=== PATIENT | male | born 1980 | race Caucasian/White ===

== ENCOUNTER 2018-11-30 08:54 | Outpatient (CLI) | payer OTHER, SELFPAY ==
--- NOTE | 2018-11-30 08:50 | DI.RAD_ITS ---
SYMPTOM/DIAGNOSIS: RT FOOT AND ANKLE PAIN, H/O CALC FX RIGHT ANKLE: Three views. No acute fracture or dislocation is identified. There does appear to be some deformity of the calcaneus raising the question of an old injury. Soft tissues are unremarkable. The articular surfaces are well maintained. IMPRESSION: No acute abnormality.
== END 2018-11-30 09:14 ==
PROVIDERS: PCP Nurse Practitioner; Visit Provider Student in an Organized Health Care Education/Training Program
DX: M25.571 Pain in right ankle and joints of right foot (principal); M79.671 Pain in right foot
CPT/HCPCS: 73610

== ENCOUNTER 2019-02-17 15:52 | Emergency (ER) | payer OTHER, SELFPAY ==
[2019-02-17 15:58] VITALS: BP 147/91; PULSE 90; RESP 15; TEMP 36.4; O2SAT 97
--- NOTE | 2019-02-17 16:00 | DI.RAD_ITS ---
SYMPTOM/DIAGNOSIS: FELL, ? FX, PAIN PA AND LATERAL CHEST AND RIGHT RIBS: PA and lateral chest and three additional views of the right ribs were obtained. Minimal deformities of sixth through ninth ribs noted, seventh and eighth rib fractures are confirmed on one view. No pneumothorax identified. No pleural effusion is seen. Cardiac size is within normal limits and lungs are clear. CONCLUSION: Right rib fractures as described, no evidence of pneumothorax or pleural effusion.
[2019-02-17] MEDS: Lidocaine 5% Patch 1 PATCH TP (16:32)
--- NOTE | 2019-02-17 16:34 | W.ED.GENAD ---
Discharge Plan Disposition Patient Disposition: HOME Condition: Good Discharge Details Chief Complaint: Chest/Rib Clinical Impression: Right rib fracture Primary Care Provider: Darling Albert ED Provider: Naif James Home Meds and New Rx's Prescriptions: New acetaminophen [Mapap Extra Strength] 500 MG tablet 1,000 mg PO Q6H 5 Days Qty: 60 RF: 0 lidocaine [Lidoderm] 1 PATCH patch 1 patch Topical Q24H Qty: 4 RF: 0 ibuprofen [Motrin IB] 200 MG tablet 600 mg PO Q6H 5 Days Qty: 60 RF: 0 No Action Humulin R Regular U-100 Insuln 100 unit/mL Solution 1 sliding scale dose SUBCUT UD RF: 0 Glucagon Emergency Kit (human) 1 mg Recon Soln 1 mg IM ONCE RF: 0 Levemir U-100 Insulin 100 unit/mL Solution 12 unit SUBCUT QPM RF: 0 Levemir U-100 Insulin 100 unit/mL Solution 25 unit SUBCUT QAM RF: 0 Discharge Instructions Instructions: Rib Fracture (ED) Additional Instructions: Please take the medications for pain as directed. Please use Lidoderm patch as directed. Please use the incentive spirometer as we showed you. If you notice any worsening of your symptoms, or any new symptoms such as cough vomiting, diarrhea, fever, chills, shortness of breath, chest pain, numbness, weakness, or fainting , please return immediately to the emergency department for reevaluation. Please follow up with your primary care provider as soon as possible for reassessment and reevaluation. As always, it was a pleasure participating in your medical care today. Referrals: Darling Albert [Primary Care Provider] - Medical Decision Making This is a pleasant 38-year-old male with a past medical history of diabetes who presents today for evaluation of right rib pain. Patient states that 3 days ago he fell and hit the right side of his ribs on a truss, since then he has been having notable pain with breathing. Physical exam demonstrates a small abrasion over the right mid ribs, notable reproducible tenderness. No evidence of crepitus. Lung sounds clear throughout. Chest x-ray shows no evidence of pneumothorax but does show evidence of questionable rib fracture over ribs 7 and 8. No clinical or radiographic evidence of severe pneumonia requiring antibiotics. We will have the patient start incentive spirometry with respiratory therapy, and have anesthesia performed a right-sided rib block. 5:27 PM The patient states that he has near complete resolution of his pain after the rib block. The patient is doing much better. Incentive spirometry demonstrates an inhalation nail of 2500 cc. With a notable improvement of his pain, no concerning findings otherwise noted on chest x-ray, I do feel that he can be safely discharged home with close follow-up with his primary care provider. I have extensively reviewed the treatment plan and discharge instructions with the patient. I have addressed all patient concerns at this time. The patient was made aware of what symptoms to monitor for that would warrant a return to the emergency department. Discussed the plan with the patient, they demonstrate verbal understanding and agreement with our assessment and plan at this time. COMPARISON: CR CHEST 2 VIEWS PA,LAT 12/15/2017 8:32 PM FINDINGS: Lungs: Unremarkable. No consolidation. Pleural space: Unremarkable. No pleural effusion. No pneumothorax. Heart/Mediastinum: Unremarkable. No cardiomegaly. Bones/joints: Lucency in the right lateral eighth or ninth rib may represent nondisplaced fracture. IMPRESSION: Lucency in the right lateral eighth or ninth rib may represent nondisplaced fracture. Thank you for allowing us to participate in the care of your patient. HPI General Date/Time Provider Initiated Documentation: 02/17/19 15:54. HPI Narrative: 38-year-old male with past medical history of diabetes, who presents today for right-sided rib pain. The patient states that 3 days ago he slipped and fell and landed with all of his weight onto a truss on his right ribs. Since then the patient has been trying to control his pain with Tylenol, and Motrin but has had no significant success. Pain is made worse with breathing, improved by nothing. The pain is localized to the right side of his chest where he fell. He denies any associated numbness tingling or weakness, hemoptysis. He denies any significant cough. He has been splinting. He denies any fever or chills. No other modifying factors. No other complaints at this time. Related Data Home Medications Medication Instructions Recorded Confirmed acetaminophen [Mapap Extra 1,000 mg PO Q6H 5 Days #60 tab 02/17/19 Strength] glucagon (human recombinant) 1 mg IM ONCE 02/17/19 02/17/19 [Glucagon Emergency Kit (human)] ibuprofen [Motrin Ib] 600 mg PO Q6H 5 Days #60 tab 02/17/19 insulin detemir U-100 [Levemir 12 unit SUBCUT QPM 02/17/19 02/17/19 U-100 Insulin] insulin detemir U-100 [Levemir 25 unit SUBCUT QAM 02/17/19 02/17/19 U-100 Insulin] insulin regular human [Humulin R 1 sliding scale dose SUBCUT UD 02/17/19 02/17/19 Regular U-100 Insuln] lidocaine [Lidoderm] 1 patch TOPICAL Q24H #4 patch 02/17/19 Previous Rx's Medication Instructions Recorded acetaminophen [Mapap Extra 1,000 mg PO Q6H 5 Days #60 tab 02/17/19 Strength] ibuprofen [Motrin Ib] 600 mg PO Q6H 5 Days #60 tab 02/17/19 lidocaine [Lidoderm] 1 patch TOPICAL Q24H #4 patch 02/17/19 Allergies Allergy/AdvReac Type Severity Reaction Status Date / Time doxycycline AdvReac severe Unverified 02/17/19 16:12 vomiting/diarrhea General Stated Complaint: Chest/Rib MICHAEL: 3 Review of Systems Review of Systems All systems reviewed & are unremarkable except as noted in HPI and below PFSH Medical History Type I diabetes mellitus (Chronic) Social History Smoking/Tobacco Use Status: Former Tobacco Use Quit Date: 11/22/17 Alcohol Intake: never Drug use: Never Do you feel safe at home: Yes Do you feel safe in your relationship?: Yes Exam Narrative Exam Narrative: 1.Const: Well-nourished, Well-developed, appearing stated age 2.Eyes: PERRL, no conjunctival injection, and symmetrical lids. 3.ENT: Atraumatic external nose and ears. Moist MM. Neck: Symmetric, trachea midline, No thyromegaly. 4.CVS: +S1/S2, No murmurs or gallops. Peripheral pulses 2+ and equal in all extremities. Brisk capillary refill in all extremities. 5.RESP: Unlabored respiratory effort. Clear to auscultation bilaterally. No wheezes rales or rhonchi. Notable reproducible tenderness over the right posterior lateral ribs over ribs 789. No crepitus. Airway clear, no obstructions. No abrasions or ecchymosis. Chest movement symmetric with respirations.Trachea midline. No step offs. No paradoxical movements. No Sucking chest wounds. No clinical evidence of significant chest trauma. 6.GI: Soft, Nontender/Nondistended, No hepatosplenomegaly. No guarding or rebound. 7.MSK: Normocephalic, Extremities w/o deformity or ttp No cyanosis or clubbing, Normal movement of all extremities 8.Skin: Warm, Dry. No rashes or lesions. 9.Neuro: center machine set up operator II-XII grossly intact. Sensation grossly intact, no focal neurologic deficits. 10.Psych: (AAO) x3. Appropriate mood and affect Course Vital Signs Temperature 36.4 C L 02/17/19 15:58 Pulse 90 02/17/19 15:58 Respiratory Rate 15 02/17/19 15:58 Blood Pressure 147/91 H 02/17/19 15:58 Pulse Oximetry 97 02/17/19 15:58 Temperature 36.4 C L 02/17/19 15:58 Temperature Source Temporal Artery Scan 02/17/19 15:58 Pulse 90 02/17/19 15:58 Respiratory Rate 15 02/17/19 15:58 Respiratory Effort Non-Labored 02/17/19 16:03 Respiratory Depth Normal 02/17/19 16:03 Respiratory Pattern Normal 02/17/19 16:03 Blood Pressure 147/91 H 02/17/19 15:58 Blood Pressure Position Sitting 02/17/19 15:58 Pulse Oximetry 97 02/17/19 15:58 Oxygen Delivery Method Room Air 02/17/19 15:58 Oxygen Flow Rate 0 02/17/19 15:58 Pain Level 8 02/17/19 16:03
[2019-02-17] MEDS: Bupivacaine LIPOSOME/PF 133 MG/10 ML VIAL IJ (16:38)
[2019-02-17] MEDS: Bupivacaine 0.5% Pres-Free 30 ML VIAL (16:38)
--- NOTE | 2019-02-17 17:35 | DI.VRAD_ITS ---
EXAM: XR Right Ribs, 2 Views EXAM DATE/TIME: 02/17/2019 4:01 PM CLINICAL HISTORY: 38 years old, male; Injury or trauma; Fall; Initial encounter; Sprain or strain; Rib area TECHNIQUE: Imaging protocol: XR Right ribs, 2 views. COMPARISON: CR CHEST 2 VIEWS PA,LAT 12/15/2017 8:32 PM FINDINGS: Bones/joints: Lucency in the right lateral eighth or ninth rib may represent nondisplaced fracture. Soft tissues: Normal. IMPRESSION: Lucency in the right lateral eighth or ninth rib may represent nondisplaced fracture. EXAM: XR Chest, 2 Views EXAM DATE/TIME: 02/17/2019 4:01 PM CLINICAL HISTORY: 38 years old, male; Injury or trauma; Fall; Initial encounter; Sprain or strain; Rib area TECHNIQUE: Imaging protocol: XR of the chest, 2 views. COMPARISON: CR CHEST 2 VIEWS PA,LAT 12/15/2017 8:32 PM FINDINGS: Lungs: Unremarkable. No consolidation. Pleural space: Unremarkable. No pleural effusion. No pneumothorax. Heart/Mediastinum: Unremarkable. No cardiomegaly. Bones/joints: Lucency in the right lateral eighth or ninth rib may represent nondisplaced fracture. IMPRESSION: Lucency in the right lateral eighth or ninth rib may represent nondisplaced fracture. Dictated and Authenticated by: Vannesa Quintana MD. Ordering:BURTON Disla MD
[2019-02-17 17:40] VITALS: BP 136/88; PULSE 86; RESP 16; O2SAT 97
== END 2019-02-17 17:40 | disposition home or self-care (01) ==
PROVIDERS: Emergency Provider Student in an Organized Health Care Education/Training Program; PCP Family Medicine
DX: S22.31XA Fracture of one rib, right side, initial encounter for closed fracture (principal); W00.0XXA Fall on same level due to ice and snow, initial encounter; E10.9 Type 1 diabetes mellitus without complications
CPT/HCPCS: 64450; 76942; 99283; 71046; 71100; 99282

== ENCOUNTER 2019-06-11 14:17 | Emergency (ER) | payer SELFPAY ==
[2019-06-11 14:20] VITALS: BP 151/90; PULSE 88; RESP 18; TEMP 36.9; O2SAT 96
--- NOTE | 2019-06-11 14:48 | ED.GENADUL_ITS ---
Discharge Plan Disposition Patient Disposition: HOME Condition: Stable Discharge Details Chief Complaint: Cellulitis Clinical Impression: Cellulitis, Erythema migrans (Lyme disease) Primary Care Provider: Darling Albert ED Provider: Je Randolph Home Meds and New Rx's Prescriptions: New ondansetron 4 mg tablet,disintegrating 4 mg PO BID Qty: 42 RF: 0 doxycycline hyclate 100 mg capsule 100 mg PO BID Qty: 42 RF: 0 No Action Humulin R Regular U-100 Insuln 100 unit/mL Solution 1 sliding scale dose SUBCUT UD RF: 0 Glucagon Emergency Kit (human) 1 mg Recon Soln 1 mg IM ONCE RF: 0 Levemir U-100 Insulin 100 unit/mL Solution 12 unit SUBCUT QPM RF: 0 Levemir U-100 Insulin 100 unit/mL Solution 25 unit SUBCUT QAM RF: 0 Discharge Instructions Instructions: Acute Rash (ED) Additional Instructions: The lesion on your leg is concerning for a soft tissue infection called cellulitis versus infection caused by a tickborne disease: Lyme disease with a rash that called erythema migrans. Early in the disease process is not effective to run tests but later your primary care doctor may consider doing some lab testing in the meantime the antibiotic doxycycline twice daily for 21 days will treat that disease and the other possibility which is just a simple bacterial infection. Please follow-up with your primary care doctor next few days and return to the emergency department immediately for fever chills or if the redness spreads beyond the trace line on your leg from today. Discharge Data Discharge Date/Time-TO BE ENTERED AT DEPARTURE: 06/11/19 15:53 Medical Decision Making 39-year-old male past medical history of diabetes with a left lateral thigh lesion concerning for cellulitis versus erythema migrans no tick bite but minimal warmth minimal tenderness more suggestive of Lyme disease than simple cellulitis. Will treat with 21 days of doxycycline and have patient follow-up with primary care this week. Patient episode of nausea and vomiting after doxycycline once in the past treated here with p.o. challenge Zofran and doxy tolerated medicine without incident will prescribe Zofran and doxycycline together for the patient's 21-day course patient counseled to return to the emergency department for fever chills joint pain spreading rash which was traced today or other concern HPI 39-year-old male past medical history of diabetes on insulin presents with 3 days of a rash and redness on his left anterior thigh wound is grown in size is red round with some central clearing. Is mildly tender to touch base of the also with some mild chills without joint swelling or myalgias. No known tick bite no history of recent trauma. No shortness of breath chest pain loss of consciousness nausea vomiting diarrhea. General Date/Time Provider Initiated Documentation: 06/11/19 14:38 . Related Data Home Medications Medication Instructions Recorded Confirmed glucagon (human recombinant) 1 mg IM ONCE 02/17/19 06/11/19 [Glucagon Emergency Kit (human)] insulin detemir U-100 [Levemir 12 unit SUBCUT QPM 02/17/19 06/11/19 U-100 Insulin] insulin detemir U-100 [Levemir 25 unit SUBCUT QAM 02/17/19 06/11/19 U-100 Insulin] insulin regular human [Humulin R 1 sliding scale dose SUBCUT UD 02/17/19 06/11/19 Regular U-100 Insuln] doxycycline hyclate 100 mg PO BID #42 cap 06/11/19 ondansetron 4 mg PO BID #42 tab 06/11/19 Previous Rx's Medication Instructions Recorded doxycycline hyclate 100 mg PO BID #42 cap 06/11/19 ondansetron 4 mg PO BID #42 tab 06/11/19 Allergies Allergy/AdvReac Type Severity Reaction Status Date / Time doxycycline AdvReac severe Unverified 06/11/19 14:25 vomiting/diarrhea General Stated Complaint: Cellulitis MICHAEL: 4 Review of Systems Review of Systems All systems reviewed & are unremarkable except as noted in HPI and below PFSH Medical History (Updated 12/02/18 @ 14:00 by Brian South MD) Type I diabetes mellitus (Chronic) Social History Smoking/Tobacco Use Status: Former Tobacco Use Quit Date: 11/22/17 Alcohol Intake: current Alcohol Intake frequency: holidays/special occasions only Drug use: Daily Substance use type: marijuana Do you feel safe at home: Yes Do you feel safe in your relationship?: Yes Exam Narrative Exam Narrative: Left lateral thigh with 15 cm oval area of erythema mild warmth no fluctuance no induration slight central clearing. Const General: cooperative, healthy appearing, no acute distress, well developed and well groomed Nutritional Appearance: well nourished Orientation: alert, awake and oriented x3 HENMT Head: normal to inspection, normocephalic and atraumatic Ears: hearing grossly normal bilaterally and external ears normal General nose exam: external nose normal Face and sinus: normal facial exam Mouth: oral mucosae normal and lip normal Chest Chest: normal inspection of the chest Resp Effort & Inspection: normal respiratory effort and able to speak in complete sentences Cardio Jugular venous pressure: no JVD Rate: regular rate GI Inspection: normal to inspection Palpation: soft, firm and guarding Percussion: normal to percussion Skin General skin exam: no rashes or lesions noted Lesions: no lesions Rashes: no rashes Trauma: no lacerations or abrasions Neuro General: alert, awake and oriented x3 Cognition: normal cognition Motor: muscle tone normal throughout Sensory Exam: no sensory deficits noted Extrem General: normal to inspection Right upper extremity: normal to inspection Left upper extremity: normal to inspection Right lower extremity: normal to inspection Left lower extremity: normal to inspection Psych Appearance: grossly normal Mental Status: mental status grossly normal Speech and Movement: speech and movement normal Course Vital Signs Temperature 36.9 C 06/11/19 14:20 Pulse 88 06/11/19 14:20 Respiratory Rate 18 06/11/19 14:20 Blood Pressure 151/90 H 06/11/19 14:20 Pulse Oximetry 96 06/11/19 14:20 Temperature 36.9 C 06/11/19 14:20 Temperature Source Tympanic 06/11/19 14:20 Pulse 88 06/11/19 14:20 Respiratory Rate 18 06/11/19 14:20 Respiratory Effort Non-Labored 06/11/19 14:23 Blood Pressure 151/90 H 06/11/19 14:20 Pulse Oximetry 96 06/11/19 14:20 Pain Level 4 06/11/19 14:20
[2019-06-11] MEDS: Ondansetron O.D.T. 4 MG TABEF PO (14:54)
[2019-06-11] MEDS: Doxycycline Hyclate 100 MG CAP PO (14:54)
== END 2019-06-11 15:53 | disposition home or self-care (01) ==
PROVIDERS: Emergency Provider Emergency Medicine; PCP Family Medicine
DX: L03.116 Cellulitis of left lower limb (principal); A69.20 Lyme disease, unspecified; E10.9 Type 1 diabetes mellitus without complications
CPT/HCPCS: 99283

== ENCOUNTER 2021-03-12 16:42 | Outpatient (REF) | payer OTHER, SELFPAY ==
[2021-03-12 14:14] LABS: ALT 21 U/L (16-63); AST 16 U/L (15-37); Albumin 3.3 g/dL (3.4-5.0); Alkaline Phosphatase 124 U/L (46-116); Anion Gap 7.5 mmol/L (3-11); BUN 10 mg/dL (7-18); Bilirubin, Total 0.5 mg/dL (0.2-1.0); CO2 28.5 mmol/L (21.0-32.0); Calcium 8.3 mg/dL (8.5-10.1); Calculated LDL 144 mg/dL (<100); Chloride 104 mmol/L (98-107); Cholesterol 201 mg/dL (<200); Glucose 255 mg/dL (74-106); HDL Cholesterol 46 mg/dL (40-60); Potassium 4.1 mmol/L (3.5-5.1); Sodium 140 mmol/L (136-145); Total Protein 6.7 g/dL (6.4-8.2); Triglyceride 56 mg/dL (<150)
== END 2021-03-12 16:43 | disposition home or self-care (01) ==
LOC: NCHCN 16:42
PROVIDERS: PCP Family Medicine; Visit Provider Family Medicine
DX: E10.9 Type 1 diabetes mellitus without complications (principal)
CPT/HCPCS: 80053; 80061

== ENCOUNTER 2021-04-22 08:32 | Emergency (ER) | payer OTHER, SELFPAY ==
[2021-04-22] VITALS (40 sets, daily range): BP systolic 115–132; BP diastolic 68–89; PULSE 66–93; RESP 9–23; TEMP 36.4; O2SAT 91–99
--- NOTE | 2021-04-22 08:45 | DI.RAD_ITS ---
Exam(s) XR FOOT RT COMPLETE EXAM: XR FOOT RT COMPLETE CLINICAL HISTORY: pain, dropped wood on foot, ttp 5th MT TECHNIQUE: COMPARISON: No exams were available for comparison FINDINGS: Three views were obtained. There is hindfoot arthrodesis with [address] which appear int act. There is a nondisplaced fracture of the head of the 5th metatarsal, this reportedly corresponds the s ite of the patient's injury. No additional fracture seen. IMPRESSION: RADIATION DOSE DELIVERED: Total DLP
--- NOTE | 2021-04-22 08:58 | ED.GENADUL_ITS ---
Discharge Plan Disposition Patient Disposition: HOME Condition: Stable Discharge Details Clinical Impression: Fracture of fifth metatarsal bone of right foot, Hypoglycemia Primary Care Provider: Darling Albert ED Provider: Attila Robertson Home Meds and New Rx's Prescriptions: Continued famotidine 40 mg tablet 40 mg PO DAILY RF: 0 insulin lispro [Humalog KwikPen Insulin] 100 unit/mL Insulin Pen See Rx Instructions .ROUTE .COMPLEX RF: 0 Tresiba FlexTouch U-100 100 unit/mL (3 mL) insulin pen 40 unit SUBCUT QAM RF: 0 (DME) FreeStyle Giancarlo 14 Day Sensor Kit MISCELLANEOUS RF: 0 Changed Glucagon Emergency Kit (human) 1 mg Recon Soln 1 mg IM ONCE PRN (Reason: hypoglycemia) Qty: 1 RF: 1 ondansetron 4 mg tablet,disintegrating 4 mg PO BID PRNQty: 10 RF: 0 Discharge Instructions Instructions: Foot Fracture in Adults (ED), Hypoglycemia in a Person with Diabetes (ED) Additional Instructions: Please use orthopedic shoe and crutches. No weightbearing of right foot until cleared to do so. Please follow-up with orthopedics. It is recommended that you modify your insulin dosing and take as follows: --Tresiba flex touch long-acting insulin: Take 27 units daily in AM --Humalog short acting insulin: Take 6 units 3 times a day with meals. Please monitor your blood glucose frequently and keep a log of your values over the next 3 weeks. Please contact your primary care physician to arrange follow-up. Call today. Return to the ER immediately for any worsening or new concerning symptoms. Referrals: Darling Albert [Primary Care Provider] - Medical Decision Making 9:00??40-year-old male with insulin-dependent diabetes on long-acting and short acting sliding scale, recently increasing long-acting dosing, here after hypoglycemic episode this morning that improved with oral glucose. Patient had nausea and vomiting for EMS and was given Zofran IV. Plan to give IV fluid here in we will check chemistry to assess for electrolyte abnormalities. Patient also with recent right foot injury. Tender right fifth metatarsal. Consider fracture. Plan to obtain x-ray. -- labs reviewed and nondiagnostic. Potassium 3.4. Will give kdur 20meq. --Patient was seen by dietitian and diabetic special who reviewed insulin regiment with patient. He is recommending changing long-acting 27 units daily and short acting 6 units 3 times daily w/ meals. 1241 -- Patient reassessed and is remained stable. Blood sugar on fingerstick 96. Plan to discharge with close outpatient follow-up with PCP. We have contacted PCP office and noted need to arrange follow-up. --Upon ambulating, patient had another episode of nausea and vomiting. He was given additional antiemetic Reglan and started on D5 normal saline and monitored for another hour. Patient was reassessed and noted be feeling much better. Disposition decision was made weighing the risks and benefits of hospitalization versus outpatient treatment, the risk for further decompensation, and the patient's wishes. The patient was stable and requested discharge. Prior to discharge, my usual and customary return precautions were reviewed with the patient - this included follow-up instructions and reason to return to the emergency department if condition worsens, does not improve as expected, or other new concerns arise. HPI General Mode of arrival: ambulatory . Date/Time Provider Initiated Documentation: 04/22/21 08:44 . Limitations to Documentation: no limitations . Information obtained by: patient . HPI Narrative: 40-year-old male with type 1 diabetes presents with chief complaint of hypoglycemia. Patient notes that this morning his blood sugar was low. He became unresponsive. Family provided him oral sugar and he became more responsive slowly. History is limited as patient was altered. EMS provided Zofran for nausea and vomiting. Patient notes she had an episode of vomiting last night. He states he has been adjusting his long-acting insulin dosing over the past few weeks as he was having elevated blood sugar and notes that he thinks his sugars now been running too low. Patient takes a long-acting insulin in the morning and then takes NovoLog sliding scale. He is unsure if he took his NovoLog this morning. Related Data Home Medications Medication Instructions Recorded Confirmed FreeStyle Giancarlo 14 Day Sensor 04/22/21 04/22/21 Glucagon Emergency Kit (human) 1 mg IM ONCE PRN #1 ea 04/22/21 Tresiba FlexTouch U-100 40 unit SUBCUT QAM 04/22/21 04/22/21 famotidine 40 mg PO DAILY 04/22/21 04/22/21 insulin lispro [Humalog KwikPen See Rx Instructions .ROUTE .COMPLEX 04/22/21 04/22/21 Insulin] ondansetron 4 mg PO BID PRN #10 tab 04/22/21 Previous Rx's Medication Instructions Recorded Glucagon Emergency Kit (human) 1 mg IM ONCE PRN #1 ea 04/22/21 ondansetron 4 mg PO BID PRN #10 tab 04/22/21 Allergies Allergy/AdvReac Type Severity Reaction Status Date / Time doxycycline AdvReac severe Unverified 04/22/21 08:37 vomiting/diarrhea General Stated Complaint: Diabetes MICHAEL: 3 Review of Systems All systems reviewed & are unremarkable except as noted in HPI and below Constitutional Constitutional: Denies fever(s) Gastrointestinal Gastrointestinal: Denies abdominal pain, Reports nausea and Reports vomiting Musculoskeletal Musculoskeletal: Denies deformity and Reports other (Right foot pain-patient notes he dropped a piece of wood on it 2 days ago) [facility] Medical History (Updated 04/22/21 @ 10:51 by Attila Robertson MD) Type I diabetes mellitus Social History Smoking/Tobacco Use Status: Former Tobacco Use Quit Date: 11/22/17 Smoking risk assessment performed?: Yes Alcohol Intake: current Alcohol Intake frequency: holidays/special occasions only Drug use: Daily Substance use type: marijuana Do you feel safe at home: Yes Do you feel safe in your relationship?: Yes Exam Const General: cooperative and no acute distress HENMT Mouth: moist mucous membranes Eyes Conjunctivae: normal conjunctivae Sclera: normal sclerae Neck Neck: trachea midline Resp Auscultation: clear to auscultation bilaterally, no rales, no rhonchi and no wheezes Cardio Rate: regular rate and not tachycardic Rhythm: regular rhythm GI Palpation: soft, not firm, no guarding, no masses, not rigid and nontender Skin General skin exam: no rashes or lesions noted Neuro General: patient alert, patient awake, patient oriented x3 and tone normal Extrem General: no edema Psych Appearance: grossly normal Mental Status: mental status grossly normal Speech and Movement: speech and movement normal Course Vital Signs Vital signs: Vital Signs Temperature 36.4 C L 04/22/21 08:32 Pulse 86 04/22/21 08:32 Respiratory Rate 18 04/22/21 08:32 Blood Pressure 131/89 04/22/21 08:32 Pulse Oximetry 96 04/22/21 08:32 Temperature 36.4 C L 04/22/21 08:32 Temperature Source Skin 04/22/21 08:32 Pulse 86 04/22/21 08:32 Respiratory Rate 18 04/22/21 08:32 Respiratory Effort Non-Labored 04/22/21 08:46 Blood Pressure 131/89 04/22/21 08:32 Blood Pressure Position Sitting 04/22/21 08:32 Pulse Oximetry 96 04/22/21 08:32 Oxygen Delivery Method Room Air 04/22/21 08:32 Oxygen Flow Rate 0 04/22/21 08:32 Pain Level 0 04/22/21 08:32
[2021-04-22 09:06] LABS: Abs Immature Grans 0.07 10^3/uL (0.0-0.06); Absolute Basophil Count 0.04 10^3/uL (0.0-0.2); Absolute Eosinophil Count 0.03 10^3/uL (0.0-0.7); Absolute Lymphocyte Count 0.87 10^3/uL (1.2-3.4); Absolute Monocyte Count 0.64 10^3/uL (0.1-0.8); Absolute Neutrophil Count 12.23 10^3/uL (1.2-6.7); Basophils % 0.3; Eosinophils % 0.2; HGB 15.3 g/dL (13.5-17.5); Immature Grans % 0.5; Lymphocytes % 6.3; MCH 28.2 pg (27.0-33.0); MCHC 33.3 % (32.0-36.0); MCV 84.9 fL (80-95); MPV 10.3 fL (8.0-11.0); Monocytes % 4.6; Neutrophils % 88.1; Nucleated RBC 0 %; Platelet Count 229 10^3/uL (130-400); RBC 5.42 10^6/uL (4.36-5.78); RDW 12.9 % (11.8-14.1); RDW-SD 39.7 fL; WBC 13.88 10^3/uL (4.4-10.8)
[2021-04-22 09:18] LABS: ALT 21 U/L (16-63); AST 18 U/L (15-37); Albumin 3.6 g/dL (3.4-5.0); Alkaline Phosphatase 125 U/L (46-116); Anion Gap 8.1 mmol/L (3-11); BUN 9 mg/dL (7-18); Bilirubin, Total 0.6 mg/dL (0.2-1.0); CO2 30.9 mmol/L (21.0-32.0); Calcium 8.5 mg/dL (8.5-10.1); Chloride 101 mmol/L (98-107); Glucose 133 mg/dL (74-106); Lipase 37 U/L (73-393); Potassium 3.4 mmol/L (3.5-5.1); Sodium 140 mmol/L (136-145)
--- NOTE | 2021-04-22 10:16 | NUR.NOTE ---
Nursing Note: Contacted [facility] and spoke with Logistics Planning Manager Yordan. Notified that this patient needs outpatient referral for Public Relations Coordinator so he can continue to utilize these services outpatient. Yordan took patients info and will get referral placed for this patient
[2021-04-22] MEDS: Ondansetron 4 MG/2 ML VIAL IVP (10:24)
[2021-04-22] MEDS: Lactated Ringers 500 ML IV (10:26)
--- NOTE | 2021-04-22 10:27 | W.INDIABCONS ---
Date of service: 04/22/21 Time of Service: 10:00 Diabetes Inpatient Consult DESCRIPTION/ASSESSMENT: Gerard is a 40 y/o M w/ DM1 admitted to Ed with hypoglycemia nausea and vomiting. Current DM meds are 40 u Tresiba am and sliding scale Novolog for meals. reports he did not eat all day yesterday and took no insulin throughout the day because he had high BG. He then took 40 units tresiba at night and then ate and vomited immediately. He had s/s hypoglycemia w/ BG reading in the 30's using finger stick. Noted: he has CGM but stated he had no sensor on yesterday. Family gave him Iced tea w/ sugar. This RD interviewed his b/c patient was lethargic and continued to vomit. INTERVENTION: Calculated the following recommendation for MD review and approval: TDD insulin at 45 units per day based on his current weight. Long acting insulin should be ~ 60% of TDD (27 units) and mealtime bolus insulin would be ~ 6 units per meal. He could still use his sliding scale for meals and correcting if he prefers it. Noted: patient was lethargic and nauseous at this encounter. Explained to that he must eat food when he is taking insulin. He requires Rx for glucagon and Free style Giancarlo 2 sensors. He needs to have a sick day plan in place. Requires CGM sensor in place to alert him to trends of hypo / hyperglycemia and action plans for each scenario. Recommended referra by his provider for further support as outpatient by [facility] DM educator and provided contact information. Will refer this patient to Shoshana De to help review insulin regimen and re-calculate BG goals and bolus correction factors. PLAN: Will f/u with Gerard and Dr Robertson before MO today and re-iterate importance of consistent food intake, review of insulin regimen, and follow up outpatient appointment with family life educator for support and re-education.. CGM review and printed AGP reports would be beneficial for this patient to help avoid hypoglycemic episodes. Time Spent in Nutritional Counseling and Treatment: 15 minutes face to face
[2021-04-22] MEDS: DEXTROSE 5%-0.45% SALINE 1,000 ML 150 ML IV (12:57)
[2021-04-22] MEDS: Metoclopramide 10 MG/2 ML VIAL IVP (12:57)
[2021-04-22] MEDS: Potassium Chloride 20 MEQ TABCR PO (13:40)
== END 2021-04-22 13:54 | disposition home or self-care (01) ==
PROVIDERS: Emergency Provider Student in an Organized Health Care Education/Training Program; PCP Family Medicine
DX: E10.649 Type 1 diabetes mellitus with hypoglycemia without coma (principal); S92.351A Displaced fracture of fifth metatarsal bone, right foot, initial encounter for closed fracture; W20.8XXA Other cause of strike by thrown, projected or falling object, initial encounter; E87.6 Hypokalemia
CPT/HCPCS: 36416; 80053; 82962; 83690; 96361; 96365; 96375; 99284; 73630; 81003; 85025; J2405; J2765

== ENCOUNTER 2021-11-22 20:39 | Outpatient (REF) | payer SELFPAY | END 2021-11-22 20:40 | disposition home or self-care (01) | LOC: LBO 20:39 | PROVIDERS: PCP Family Medicine ==

== ENCOUNTER 2023-02-23 11:44 | Outpatient (CLI) | payer OTHER, SELFPAY ==
--- NOTE | 2023-02-23 11:15 | DI.RAD_ITS ---
Exam(s) XR SHOULDER RT COMPLETE 2+V EXAM: XR SHOULDER RT COMPLETE 2+V CLINICAL HISTORY: shoulder pain. TECHNIQUE: 2D digital imaging was performed. Two views. COMPARISON: CR XR SHOULDER LT COMPLETE 2+V from 02/23/2023 FINDINGS: BONES: No acute fracture is present. No bony destructive lesion is seen. JOINTS: No dislocation present. Glenohumeral joint space is maintained. Minimal spurring at the gle noid. AC joint not well profiled but no significant spurring visible SOFT TISSUE: Normal. IMPRESSION: Minimal degenerative changes. DATA REPOSITORY: RADIATION DOSE DELIVERED:
--- NOTE | 2023-02-23 11:15 | DI.RAD_ITS ---
Exam(s) XR SHOULDER LT COMPLETE 2+V EXAM: XR SHOULDER LT COMPLETE 2+V CLINICAL HISTORY: shoulder pain. TECHNIQUE: 2D digital imaging was performed. Three views. COMPARISON: CR XR ribs RT w PA lat chest from 02/17/2019 FINDINGS: BONES: No acute fracture is present. No bony destructive lesion is seen. JOINTS: No dislocation present.Mild spurring at the glenoid. AC joint unremarkable. SOFT TISSUE: Normal. IMPRESSION: Minimal degenerative changes. DATA REPOSITORY: RADIATION DOSE DELIVERED:
== END 2023-02-23 11:45 | disposition home or self-care (01) ==
PROVIDERS: PCP Family Medicine; Referring Provider Family Medicine; Visit Provider Student in an Organized Health Care Education/Training Program
DX: M25.511 Pain in right shoulder (principal); M25.512 Pain in left shoulder; M25.811 Other specified joint disorders, right shoulder; M25.812 Other specified joint disorders, left shoulder
CPT/HCPCS: 73030

== ENCOUNTER 2023-07-25 16:58 | Inpatient (IN) | payer SELFPAY ==
[2023-07-25] VITALS (77 sets, daily range): BP systolic 94–141; BP diastolic 47–98; PULSE 105–140; RESP 12–41; TEMP 36.7–37; O2SAT 93–100
--- NOTE | 2023-07-25 17:29 | ED.GENADUL_ITS ---
Discharge Plan Disposition Patient Disposition: Admit to [facility] Discharge Details Clinical Impression: DKA (diabetic ketoacidosis), Vomiting, Acute dehydration Admit Date/Time: 07/25/23 22:29 Admit Provider: Marcello Dia Attending Provider: Marcello Dia Primary Care Provider: Darling Albert ED Provider: Sher Martinez Discharge Data Discharge Date/Time-TO BE ENTERED AT DEPARTURE: 07/25/23 23:34 Medical Decision Making <Sher Martinez NP - Last Filed: 07/26/23 16:08> Patient presenting to the emergency department for chief complaint of high sugars with some nausea and vomiting. Patient reports that he was out for his anniversary last night and did have some cocktails and drinks along with a bigger meal than normal. Before going to bed last night he did have an episode of vomiting but then throughout the day today he has had continued further episodes of vomiting and elevated sugars. He states his blood sugar typically runs around 150s but today has been in the 300s. He reports abdominal pain secondary to vomiting only otherwise denies other symptoms. Physical exam shows diffuse nonfocal abdominal pain, tachycardia, otherwise nondiagnostic exam. I suspect elevated blood sugar secondary to alcohol intake with potential for electrolyte abnormality and dehydration. Pending results we will give patient 2 L of normal saline Zofran and acetaminophen Reviewed patient's labs and patient does have some signs of leukocytosis which I feel is secondary to vomiting, VBG does not show any acidosis which is reassuring, CMP shows low sodium chloride and carbon dioxide with elevated anion gap, BUN and creatinine. Glucose is 340 and bilirubin slightly elevated at 1.4 with otherwise normal LFTs. Magnesium is 1.6 which once patient can tolerate p.o. intake will replete orally. Urinalysis does show high specific gravity ketones and 500 glucose otherwise nondiagnostic. All other labs within normal value. After 2 L of fluid patient remained tachycardic so we will start third liter of NS and will repeat BMP. Fingerstick was performed and is now 217 which is reassuring. BMP showed glucose of 250 and some improvement of anion gap now at 18.4 down from 24. Other labs show slight improvement but not significant. Patient did have resumption of nausea and vomiting so Compazine was ordered. Discussed admission with patient who is agreeable. Did also order patient for units of subcu insulin given that he states typically he will take around that same amount. Given that he is having significant amount of nausea and vomiting that is near irretractable we will plan on performing CT imaging to ensure no other intra-abdominal processes going on. Reviewed CT imaging and radiologist interpretation that shows some signs of inflammatory thickening of the cecum to suggest colitis but otherwise no emergent findings noted. Patient remains tachycardic in spite of now starting the fourth liter of fluids, I am concerned about significant dehydration, and alcoholic ketosis along with persistent nausea and vomiting. We will contact hospitalist for admission which patient is agreeable to stay. Discussed case with hospitalist who agreed to admit patient. Do feel that this is both DKA and metabolic alkalosis most likely secondary to excessive vomiting. Per hospitalist request insulin will protocol, maintenance fluids and IV magnesium given that patient cannot tolerate p.o. intake. Imaging Data Radiologic Study: Imaging: CT Scan Radiologist's impression: Exam(s) PROCEDURE INFORMATION: Exam: CT Chest With Contrast; Diagnostic Exam date and time: 07/25/2023 8:37 PM Age: 43 years old Clinical indication: Nausea and vomiting; Other: Tachy TECHNIQUE: Imaging protocol: Diagnostic computed tomography of the chest with contrast. 3D rendering (Not supervised by radiologist): MIP and/or 3D reconstructed images were created by the technologist. Contrast material: 350; Contrast volume: 100 ml; Contrast route: INTRAVENOUS (IV); COMPARISON: CR XR ribs RT w PA lat chest 02/17/2019 4:23 PM FINDINGS: Lungs: Unremarkable. No consolidation. No masses. Pleural spaces: Unremarkable. No pneumothorax. No pleural effusion. Heart: Unremarkable. No cardiomegaly. No pericardial effusion. Lymph nodes: Unremarkable. No enlarged lymph nodes. Vasculature: Unremarkable. No aortic aneurysm. Bones/joints: Unremarkable. No acute fracture. Soft tissues: Unremarkable. IMPRESSION: No acute findings. PROCEDURE INFORMATION: Exam: CT Abdomen And Pelvis With Contrast Exam date and time: 07/25/2023 8:37 PM Age: 43 years old Clinical indication: Nausea and vomiting; Other: Tachy TECHNIQUE: Imaging protocol: Computed tomography of the abdomen and pelvis with contrast. 3D rendering (Not supervised by radiologist): MIP and/or 3D reconstructed images were created by the technologist. Contrast material: 350; Contrast volume: 100 ml; Contrast route: INTRAVENOUS (IV); COMPARISON: CR XR ribs RT w PA lat chest 02/17/2019 4:23 PM FINDINGS: Liver: Normal. No mass. Gallbladder and bile ducts: Normal. No calcified stones. No ductal dilation. Pancreas: Normal. No ductal dilation. Spleen: Normal. No splenomegaly. Adrenal glands: Normal. No mass. Kidneys and ureters: Normal. No hydronephrosis. Stomach and bowel: Moderate concentric wall thickening of the cecum and surrounding fatty stranding suggesting colitis. No evidence of bowel obstruction. Appendix: No evidence of appendicitis. Intraperitoneal space: Unremarkable. No free air. No significant fluid collection. Vasculature: Unremarkable. No abdominal aortic aneurysm. Lymph nodes: Unremarkable. No enlarged lymph nodes. Urinary bladder: Unremarkable as visualized. Reproductive: Unremarkable as visualized. Bones/joints: Unremarkable. No acute fracture. Soft tissues: Unremarkable. IMPRESSION: Inflammatory appearing concentric wall thickening in the cecum suggesting colitis. Lab Data Lab results reviewed: Yes I reviewed the patient's lab results. <Attila Robertson MD - Last Filed: 08/11/23 15:13> Date: 07/25/23 Time: 19:45 Note: Patient seen, examined, and discussed with ANU Martinez. I agree with treatment plan as discussed/documented. Patient with significant anion gap acidosis which I suspect is secondary to alcoholic ketoacidosis but consider DKA. Plan for IV fluid resuscitation. Plan to recheck chemistry and reassess patient for disposition. HPI <Sher Martinez NP - Last Filed: 07/26/23 16:08> General Mode of arrival: ambulatory . Date/Time Provider Initiated Documentation: 07/25/23 17:00 . Limitations to Documentation: no limitations . Information obtained by: patient, family and RN notes reviewed . History of Present Illness 43 year old M presents to the emergency department with the chief complaint of Nausea vomiting high sugars, described as moderate and similar to prior episodes, Quality is described as aching, and is localized to the abdomen. Patient started experiencing this day(s) (1) and it has been constant. No relieving factors improve symptom(s), Eating worsens symptoms (Alcohol intake) . Patient notes nausea/vomiting. Patient did receive the following treatments prior to arrival, other (6 units of insulin 30 minutes prior to arrival) Related Data Home Medications Medication Instructions Recorded Confirmed flash glucose sensor (FreeStyle 04/22/21 02/23/23 Giancarlo 14 Day Sensor kit) glucagon (human recombinant) 1 mg 1 mg IM ONCE PRN hypoglycemia #1 ea 04/22/21 07/25/23 solution for injection (Glucagon Emergency Kit) insulin degludec 100 unit/mL (3 40 unit subcut QAM 04/22/21 02/23/23 mL) subcutaneous pen (Tresiba FlexTouch U-100 insulin) insulin lispro 100 unit/mL See Rx Instructions .Route .COMPLEX 04/22/21 07/25/23 subcutaneous pen (Humalog KwikPen (U-100) Insulin) insulin detemir U-100 100 unit/mL 30 unit subcut QHS 01/29/23 07/25/23 (3 mL) subcutaneous pen (Levemir FlexPen) Previous Rx's Medication Instructions Recorded glucagon (human recombinant) 1 mg 1 mg IM ONCE PRN hypoglycemia #1 ea 04/22/21 solution for injection (Glucagon Emergency Kit) Allergies Allergy/AdvReac Type Severity Reaction Status Date / Time doxycycline AdvReac severe Unverified 02/23/23 11:15 vomiting/diarrhea General Stated Complaint: Diabetes MICHAEL: 2 Review of Systems <Sher Martinez NP - Last Filed: 07/26/23 16:08> Constitutional Constitutional: Denies chills, Denies fever(s) and Reports poor appetite Cardiovascular Cardiovascular: Denies chest pain and Denies dyspnea Respiratory Respiratory: Denies cough and Denies dyspnea Gastrointestinal Gastrointestinal: Reports as per HPI, Reports abdominal pain, Denies melena, Denies change in bowel habits, Denies constipation, Denies diarrhea, Reports nausea and Reports vomiting Genitourinary Genitourinary: Reports system reviewed and no additional complaints, except as documented Integumentary/Breasts Skin/Breast: Denies rash [facility] <Sher Martinez NP - Last Filed: 07/26/23 16:08> All Active Problems (Updated 07/27/23 @ 00:07 by CLIFF KELLER) Adhesive capsulitis of both shoulders (Acute) Fracture of fifth metatarsal bone of right foot (Acute) Hypoglycemia (Acute) Right calcaneal fracture malunion (Acute) Arthritis of right subtalar joint (Acute) Type I diabetes mellitus (Chronic) Social History Smoking/Tobacco Use Status: Former Tobacco Use Quit Date: 11/22/17 Smoking risk assessment performed?: Yes Alcohol Intake: current Alcohol Intake frequency: holidays/special occasions only Drug use: Daily Substance use type: marijuana Housing: house Current gender identity: male Do you feel safe at home: Yes Do you feel safe in your relationship?: Yes Exam <Sher Martinez NP - Last Filed: 07/26/23 16:08> Const General: cooperative Orientation: alert, awake and oriented x3 Resp Effort & Inspection: normal respiratory effort and able to speak in complete sentences Auscultation: clear to auscultation bilaterally Cardio Rate: tachycardic Rhythm: regular rhythm Heart Sounds: S1 normal and S2 normal GI Palpation: soft, no hepatosplenomegaly, not firm, no guarding, no masses, no pulsatile masses, not rigid, no splenomegaly and tender (Diffuse nonfocal) Auscultation: normal bowel sounds Back/Spine/Pelvis Back: no CVA tenderness Neuro General: patient alert, patient awake, patient oriented x3, gait normal and moves all extremities Course <ANU Cordon Last Filed: 07/26/23 16:08> Vital Signs Vital signs: Vital Signs Temperature 36.7 C 07/25/23 17:08 Pulse 111 H 07/25/23 17:08 Respiratory Rate 18 07/25/23 17:08 Blood Pressure 122/80 07/25/23 17:08 Pulse Oximetry 98 07/25/23 17:08 Temperature 36.7 C 07/25/23 17:08 Temperature Source Oral 07/25/23 17:08 Pulse 111 H 07/25/23 17:08 Respiratory Rate 18 07/25/23 17:08 Respiratory Effort Normal, Non-Labored 07/25/23 17:14 Blood Pressure 122/80 07/25/23 17:08 Pulse Oximetry 98 07/25/23 17:08 Oxygen Delivery Method Room Air 07/25/23 17:08 Oxygen Flow Rate 0 07/25/23 17:08 Critical Care Time <ANU Cordon Last Filed: 07/26/23 16:08> Critical Care Time Critical Care Time: Yes Total Critical Care Time: 60 Attestation: Due to DKA with significant vomiting with high probability of imminent or life threatening deterioration in the patient?s condition without intervention and treatment. At least 60 minutes was spent in caring for patient. Time spent documenting, reviewing labs and radiographs, monitoring titration/ Vital signs, and speaking with hospitalist for admission. PAWSS <Sher Martinez NP - Last Filed: 07/26/23 16:08> Have you Been Recently Intoxicated or Drunk Within the Last 30 days?: No Have you Ever Experienced Previous Episodes of Alcohol Withdrawal?: No Have you ever Experienced Withdrawal Seizures?: No Have you ever Experienced Delirium Tremens(DT)s?: No Have you ever undergone Alcohol Rehabilitation Treatment (i.e, inpt ot outpatient treatment programs)?: No Have you ever Experienced Blackouts?: No Have you ever Combined Alcohol with other Downers within the last 90 days?: No Have you ever Combined Alcohol with any other Substance of Abuse during the last 90 days?: No Positive Blood Alcohol level on Presentation? [PCS.BAL]: No Evidence of Increased Autonomic Activity (i.e. HR>120, tremor, sweating, agitation, nausea)?: No Result: 0 <Attila Robertson MD - Last Filed: 08/11/23 15:13> Result: 0
[2023-07-25 17:32] LABS: BE (Venous) -10 mmol/L (-2-3); HCO3 (Venous) 15 mmol/L (23-28); O2 Sat (Venous) 92 %; TCO2 (Venous) 13 mmol/L (24-29); pCO2 (Venous) 25 mmHg (41-51); pH (Venous) 7.39 (7.31-7.41); pO2 (Venous) 60 mmHg
[2023-07-25] MEDS: Normal Saline 1,000 ML 1000 ML IV ×4 (17:39→21:28)
[2023-07-25] MEDS: Ondansetron 4 MG/2 ML VIAL IVP ×2 (17:39→17:57)
[2023-07-25 17:44] LABS: Abs Immature Grans 0.06 10^3/uL (0.0-0.06); Absolute Basophil Count 0.03 10^3/uL (0.0-0.2); Absolute Monocyte Count 0.67 10^3/uL (0.1-0.8); Basophils % 0.2; HCT 46.7 % (40.0-50.0); HGB 16.1 g/dL (13.5-17.5); Immature Grans % 0.4; Lymphocytes % 4.3; MCH 29.5 pg (27.0-33.0); MCHC 34.5 % (32.0-36.0); MCV 86 fL (80-95); MPV 10.5 fL (8.0-11.0); Monocytes % 4.7; Neutrophils % 90.4; Platelet Count 235 10^3/uL (130-400); RBC 5.45 10^6/uL (4.36-5.78); RDW 13.1 % (11.8-14.1); RDW-SD 40.4 fL; WBC 14.26 10^3/uL (4.4-10.8)
[2023-07-25 17:45] LABS: Absolute Lymphocyte Count 0.61 10^3/uL (1.2-3.4); Absolute Neutrophil Count 12.89 10^3/uL (1.2-6.7)
[2023-07-25 17:47] LABS: Bilirubin Negative (Negative); Blood Negative (Negative); Clarity Clear (Clear); Glucose 500 mg/dL (Negative); Ketones >=160 mg/dL (Negative); Leukocyte Esterase Negative (Negative); Nitrite Negative (Negative); Specific Gravity >= 1.030 (1.005-1.025); Urobilinogen 0.2 mg/dL (Up to 0.2); pH 5.5 (5-8)
[2023-07-25 17:54] LABS: ALT 37 U/L (16-63); AST 23 U/L (15-37); Albumin 4.3 g/dL (3.4-5.0); Alkaline Phosphatase 105 U/L (46-116); Anion Gap 24.4 mmol/L (3-11); BUN 19 mg/dL (7-18); Bilirubin, Total 1.4 mg/dL (0.2-1.0); CO2 15.6 mmol/L (21.0-32.0); CREATININE 1.4 mg/dL (0.70-1.30); Calcium 9.3 mg/dL (8.5-10.1); Chloride 93 mmol/L (98-107); Estimated GFR 64.36 (mL/min/1.73m2); Glucose 340 mg/dL (74-106); Magnesium 1.6 mg/dL (1.8-2.4); Potassium 4.5 mmol/L (3.5-5.1); Sodium 133 mmol/L (136-145); Total Protein 7.8 g/dL (6.4-8.2)
[2023-07-25] MEDS: ACETAMINOPHEN 1,000 MG/100 ML BTL 400 MG IVPB (17:57)
[2023-07-25 18:00] LABS: Lipase 13 U/L (16-77)
--- NOTE | 2023-07-25 18:55 | NUR.NOTE ---
assumed care of PT. PT resting Nursing Note:
[2023-07-25] MEDS: Prochlorperazine 10 MG/2 ML VIAL 5 MG IVP (19:47)
[2023-07-25 19:49] LABS: Anion Gap 18.4 mmol/L (3-11); BUN 18 mg/dL (7-18); CO2 17.6 mmol/L (21.0-32.0); CREATININE 1.2 mg/dL (0.70-1.30); Calcium 8.4 mg/dL (8.5-10.1); Chloride 98 mmol/L (98-107); Estimated GFR 77.43 (mL/min/1.73m2); Glucose 250 mg/dL (74-106); Potassium 4.3 mmol/L (3.5-5.1); Sodium 134 mmol/L (136-145)
--- NOTE | 2023-07-25 19:50 | NUR.NOTE ---
PT vomited 10 min ago. ED METHODS SPECIALIST ENGINEER notified. order obtained Nursing Note:
--- NOTE | 2023-07-25 19:57 | NUR.NOTE ---
PT vomiting. ED RUSSET REPAIRER notifiedNursing Note:
--- NOTE | 2023-07-25 20:00 | DI.CT_ITS ---
Exam(s) CT CHEST/ABD/PEL W EXAM: CT CHEST/ABD/PEL W CLINICAL HISTORY: Vomiting TECHNIQUE: Imaging Protocol: Axial computed tomography images with coronal and sagittal reformatted images were created and reviewed CONTRAST MATERIAL: Intravenous: Omnipaque 350 contrast volume:100 mL Oral: No COMPARISON: No exams were available for comparison FINDINGS: CHEST: Tracheobronchial tree: Patent where visualized. Pulmonary parenchyma: No consolidation or dominant measurable mass. No architectural distortion. Ther e is a 2 mm nodule in the peripheral right upper lobe. Visualized thyroid gland: Unremarkable. Mediastinum and Marcela: No dominant adenopathy or fluid collection. The esophagus is unremarkable. Pleura: No effusion or pneumothorax. Heart: The heart is not dilated. No coronary artery calcifications are seen. No pericardial effusion. Pulmonary arteries: Poor opacification due to bolus timing. No large central pulmonary embolus is se en. Aorta: Thoracic aorta non-dilated. Lymph nodes: Within normal limits. Soft tissues: Mild gynecomastia. Bones:Within normal limits for the patient's age. ABDOMEN: Liver: Normal density. No measurable mass. Portal, Superior Mesenteric, and Splenic Veins: Unremarkable. Gallbladder and Biliary Tract: No radiodense calculus or dilation. Pancreas: Normal density, no abnormal calcifications or inflammatory process. Spleen: Normal. Adrenals: No masses seen. Kidneys: Normal size, contour and axis. No radiodense stones or obstructive uropathy. No masses seen. Abdominal Aorta: Abdominal portion non-dilated. Bowel: There is mild bowel wall thickening seen in the cecum. There is also mild bowel wall thickeni ng seen in the region of the descending colon and sigmoid colon. Mild pericolonic inflammation is se en. The findings suggest a colitis. Appendix is unremarkable. Peritoneal Cavity: No ascites, collection or mesenteric inflammatory response. No free air. Lymph Nodes: Within normal limits. Bones: Within normal limits for the patient's age. Soft Tissues: Small fat containing umbilical hernia. PELVIS: Bladder: Symmetric distention, no gross wall thickening. Reproductive Organs: Unremarkable as visualized. Lymph Nodes: Within normal limits. Bones: Within normal limits. IMPRESSION: 1. No acute pulmonary process. 2. Findings suggesting infectious or inflammatory colitis. RADIATION DOSE DELIVERED: 1,054.81mGy.cm Total DLP DATA REPOSITORY: All CT scans at this facility are submitted to the National Radiology Data Registry (NRDR) Dose Index Registry (DIR) with the [employer] ([employer]). RADIATION OPTIMIZATION: All CT scans at this facility use at least one of these dose optimization te chniques: automated exposure control; mA and/or kV adjustment per patient size (includes targeted exa ms where dose is matched to clinical indication); or iterative reconstruction.
[2023-07-25] MEDS: Insulin REGULAR-Human 100 UNITS/ML UNIT SC (20:05)
[2023-07-25] MEDS: LORazepam 2 MG/ML VIAL 1 MG IM (20:17)
[2023-07-25] MEDS: Normal Saline - Diluent 50 ML VIAL IJ (20:28)
[2023-07-25] MEDS: Omnipaque 350 MG/ML 100 ML BTL IJ (20:29)
--- NOTE | 2023-07-25 21:35 | DI.VRAD_ITS ---
PROCEDURE INFORMATION: Exam: CT Chest With Contrast; Diagnostic Exam date and time: 07/25/2023 8:37 PM Age: 43 years old Clinical indication: Nausea and vomiting; Other: Tachy TECHNIQUE: Imaging protocol: Diagnostic computed tomography of the chest with contrast. 3D rendering (Not supervised by radiologist): MIP and/or 3D reconstructed images were created by the technologist. Contrast material: 350; Contrast volume: 100 ml; Contrast route: INTRAVENOUS (IV); COMPARISON: CR XR ribs RT w PA lat chest 02/17/2019 4:23 PM FINDINGS: Lungs: Unremarkable. No consolidation. No masses. Pleural spaces: Unremarkable. No pneumothorax. No pleural effusion. Heart: Unremarkable. No cardiomegaly. No pericardial effusion. Lymph nodes: Unremarkable. No enlarged lymph nodes. Vasculature: Unremarkable. No aortic aneurysm. Bones/joints: Unremarkable. No acute fracture. Soft tissues: Unremarkable. IMPRESSION: No acute findings. PROCEDURE INFORMATION: Exam: CT Abdomen And Pelvis With Contrast Exam date and time: 07/25/2023 8:37 PM Age: 43 years old Clinical indication: Nausea and vomiting; Other: Tachy TECHNIQUE: Imaging protocol: Computed tomography of the abdomen and pelvis with contrast. 3D rendering (Not supervised by radiologist): MIP and/or 3D reconstructed images were created by the technologist. Contrast material: 350; Contrast volume: 100 ml; Contrast route: INTRAVENOUS (IV); COMPARISON: CR XR ribs RT w PA lat chest 02/17/2019 4:23 PM FINDINGS: Liver: Normal. No mass. Gallbladder and bile ducts: Normal. No calcified stones. No ductal dilation. Pancreas: Normal. No ductal dilation. Spleen: Normal. No splenomegaly. Adrenal glands: Normal. No mass. Kidneys and ureters: Normal. No hydronephrosis. Stomach and bowel: Moderate concentric wall thickening of the cecum and surrounding fatty stranding suggesting colitis. No evidence of bowel obstruction. Appendix: No evidence of appendicitis. Intraperitoneal space: Unremarkable. No free air. No significant fluid collection. Vasculature: Unremarkable. No abdominal aortic aneurysm. Lymph nodes: Unremarkable. No enlarged lymph nodes. Urinary bladder: Unremarkable as visualized. Reproductive: Unremarkable as visualized. Bones/joints: Unremarkable. No acute fracture. Soft tissues: Unremarkable. IMPRESSION: Inflammatory appearing concentric wall thickening in the cecum suggesting colitis. Dictated and Authenticated by: Heraclio Schafer MD. Ordering:EVELYN Olivarez MD
--- NOTE | 2023-07-25 22:10 | W.PM.HP.N ---
Date of service: 07/25/23 Time of Service: 22:10 Assessment and Plan Assessment and plan (1) DKA (diabetic ketoacidosis): Status: Acute Assessment and plan: DKA. Precpitant not entirely clear but the fact that also has had some GI disturbance suggests possible food poisoning or gastroenteritis. Regardless the acidosis is moving in the right direction (note that the essentially normal pH indicates a second acid-base disorder and a possibility is a metabolic alkalosis from excessive vomiting). Will place on insulin infusion and continue aggressive fluid replacement and monitor q4H electrolytes. Latest K 4.3 and will add to IVF. The borderline low blood pressure and persistent tachycardia are likely from a degree of persistent hypovolemia; doubt sepsis. No signs at present suggestive of acute infectious process (other than suspected possible gastroenteritis mentioned above).Will continue to monitor hemodynamics closely. History of Present Illness History of Present Illness Chief Complaint: vomiting, hyperglycemia Narrative: 43 male with type 1 DM -- last night ate out, along with excessive drinking, today hs had elevated sugars and multiple episodes of bilious vomiting. In ER findings of note for sugar 340, HCO3 15 and AG 24, with positive ketonuria. pH on VBG 7.39. White count [address] shows some thickening and stranding of cecum suggestive of possible colitis. Denies abdominal pain and no diarrhea. Also has not missed any doses of insulin. Notably his (who shared last night's meal) has herself had some diarrhea. Patient had earlier on his own taken 6 units SQ insulin and here in ER received additional 4 units, along with now 4 L IVF. Has also received Zofran, Compazine and Ativan with resolution of nausea. HCO3 up to 17 and AG down to 18. At present states only that he feels sleepy. Review of Systems Narrative: per HPI PFSH All Active Problems DKA (diabetic ketoacidosis) (Acute) Vomiting (Acute) Acute dehydration (Acute) Adhesive capsulitis of both shoulders (Acute) Fracture of fifth metatarsal bone of right foot (Acute) Hypoglycemia (Acute) Right calcaneal fracture malunion (Acute) Arthritis of right subtalar joint (Acute) Type I diabetes mellitus (Chronic) Social History Smoking/Tobacco Use Status: Former Tobacco Use Quit Date: 11/22/17 Smoking risk assessment performed?: Yes Alcohol Intake: current Alcohol Intake frequency: holidays/special occasions only Drug use: Daily Substance use type: marijuana Current gender identity: male Do you feel safe at home: Yes Do you feel safe in your relationship?: Yes Meds Allergies and Home Medications Allergies Allergy/AdvReac Type Severity Reaction Status Date / Time doxycycline AdvReac severe Unverified 02/23/23 11:15 vomiting/diarrhea Home Medications Medication Instructions Recorded Confirmed Type flash glucose sensor (FreeStyle 04/22/21 02/23/23 History Giancarlo 14 Day Sensor kit) glucagon (human recombinant) 1 mg 1 mg IM ONCE PRN hypoglycemia #1 ea 04/22/21 07/25/23 Rx solution for injection (Glucagon Emergency Kit) insulin degludec 100 unit/mL (3 40 unit subcut QAM 04/22/21 02/23/23 History mL) subcutaneous pen (Tresiba FlexTouch U-100 insulin) insulin lispro 100 unit/mL See Rx Instructions .Route .COMPLEX 04/22/21 07/25/23 History subcutaneous pen (Humalog KwikPen (U-100) Insulin) insulin detemir U-100 100 unit/mL 30 unit subcut QHS 01/29/23 07/25/23 History (3 mL) subcutaneous pen (Levemir FlexPen) Exam Narrative Exam Narrative: 95/56, 124, 36.7, 23, 95% RA. HEENT atraumatic; neck supple; lungs clear; heart tachy/regular; abdomen soft and NT; extremities w/o edema; neuro Ox3, lucid, moves all 4s equally Results Labs 07/25/23 17:15 07/25/23 19:30 Labs: Laboratory Results - last 24 hr 07/25/23 07/25/23 07/25/23 17:15 17:15 17:15 WBC 14.26 H RBC 5.45 Hgb 16.1 Hct 46.7 MCV 86 MCH 29.5 MCHC 34.5 RDW 13.1 Plt Count 235 MPV 10.5 Immature Gran % 0.4 Neutrophils % 90.4 Lymphocytes % 4.3 Monocytes % 4.7 Eosinophils % 0.0 Basophils % 0.2 Nucleated RBC % 0.0 Absolute Neutrophils 12.89 H Absolute Lymphocytes 0.61 L Absolute Monocytes 0.67 Absolute Eosinophils 0.00 Absolute Basophils 0.03 VBG pH 7.39 VBG pCO2 25 L VBG pO2 60 VBG HCO3 15 L VBG Total CO2 13 L VBG O2 Saturation 92 VBG Base Excess -10 L Sodium 133 L Potassium 4.5 Chloride 93 L Carbon Dioxide 15.6 L Anion Gap 24.4 H BUN 19 H Creatinine 1.4 H Est GFR (CKD-EPI 2020) 64.36 Glucose 340 H Calcium 9.3 Magnesium 1.6 L Total Bilirubin 1.4 H AST 23 ALT 37 Alkaline Phosphatase 105 Total Protein 7.8 Albumin 4.3 Lipase Urine Color Urine Clarity Urine pH Ur Specific [place] Urine Protein Urine Ketones Urine Blood Urine Nitrite Urine Bilirubin Urine Urobilinogen Ur Leukocyte Esterase Urine Glucose 07/25/23 07/25/23 07/25/23 17:15 17:35 19:30 WBC RBC Hgb Hct MCV MCH MCHC RDW Plt Count MPV Immature Gran % Neutrophils % Lymphocytes % Monocytes % Eosinophils % Basophils % Nucleated RBC % Absolute Neutrophils Absolute Lymphocytes Absolute Monocytes Absolute Eosinophils Absolute Basophils VBG pH VBG pCO2 VBG pO2 VBG HCO3 VBG Total CO2 VBG O2 Saturation VBG Base Excess Sodium 134 L Potassium 4.3 Chloride 98 Carbon Dioxide 17.6 L Anion Gap 18.4 H BUN 18 Creatinine 1.2 Est GFR (CKD-EPI 2020) 77.43 Glucose 250 H Calcium 8.4 L Magnesium Total Bilirubin AST ALT Alkaline Phosphatase Total Protein Albumin Lipase 13 L Urine Color Yellow Urine Clarity Clear Urine pH 5.5 Ur Specific [place] >= 1.030 H Urine Protein Negative Urine Ketones >=160 H Urine Blood Negative Urine Nitrite Negative Urine Bilirubin Negative Urine Urobilinogen 0.2 Ur Leukocyte Esterase Negative Urine Glucose 500 H Last Vital Signs Temp 36.7 C 07/25/23 17:08 Pulse 124 H 07/25/23 21:45 Resp 23 07/25/23 22:00 BP 95/56 L 07/25/23 21:45 Pulse Ox 95 07/25/23 22:00 PAWSS Have you Been Recently Intoxicated or Drunk Within the Last 30 days?: No Have you Ever Experienced Previous Episodes of Alcohol Withdrawal?: No Have you ever Experienced Withdrawal Seizures?: No Have you ever Experienced Delirium Tremens(DT)s?: No Have you ever undergone Alcohol Rehabilitation Treatment (i.e, inpt ot outpatient treatment programs)?: No Have you ever Experienced Blackouts?: No Have you ever Combined Alcohol with other Downers within the last 90 days?: No Have you ever Combined Alcohol with any other Substance of Abuse during the last 90 days?: No Positive Blood Alcohol level on Presentation? [PCS.BAL]: No Evidence of Increased Autonomic Activity (i.e. HR>120, tremor, sweating, agitation, nausea)?: No Result: 0 Time Spent Time spent with Patient: 40-54 minutes Time was spent: preparing to see the patient(eg.review tests), obtaining and/or reviewing separately otained hiistory, ordering medications,tests, procedures, referring, communicating with other health patient care associate and indepentently interpreting results
[2023-07-25] MEDS: Normal Saline 1,000 ML 150 ML IV (22:31)
[2023-07-25] MEDS: MAGNESIUM SULFATE 2 GM/50 ML BAG IVPB (22:37)
[2023-07-25] MEDS: INSULIN REGULAR IN 0.9 % NACL 100 UNIT/100 ML BAG IV (22:47)
[2023-07-25 22:55] LABS: Source Nasal/Nares
[2023-07-25 23:26] LABS: COVID-19 PCR Negative (Negative)
[2023-07-26] VITALS (23 sets, daily range): BP systolic 88–120; BP diastolic 54–75; PULSE 88–110; RESP 4–23; TEMP 37.4; O2SAT 95–98
[2023-07-26 00:11] LABS: Anion Gap 11.9 mmol/L (3-11); BUN 17 mg/dL (7-18); CO2 23.1 mmol/L (21.0-32.0); CREATININE 1.2 mg/dL (0.70-1.30); Calcium 7.3 mg/dL (8.5-10.1); Chloride 102 mmol/L (98-107); Estimated GFR 77.43 (mL/min/1.73m2); Glucose 160 mg/dL (74-106); Potassium 3.9 mmol/L (3.5-5.1); Sodium 137 mmol/L (136-145)
[2023-07-26] MEDS: POTASSIUM CHLORIDE/D5-0.45NACL 1,000 ML 150 MEQ IV ×2 (00:41→07:13)
[2023-07-26 04:17] LABS: BUN 15 mg/dL (7-18); CREATININE 1.1 mg/dL (0.70-1.30); Calcium 7.5 mg/dL (8.5-10.1); Chloride 105 mmol/L (98-107); Estimated GFR 85.95 (mL/min/1.73m2); Glucose 110 mg/dL (74-106); Potassium 3.5 mmol/L (3.5-5.1); Sodium 137 mmol/L (136-145)
--- NOTE | 2023-07-26 07:48 | PGE_ITS ---
Date of Service Date of service: 07/26/23 Time of Service: 07:48 Assessment and Plan Assessment and plan (1) DKA (diabetic ketoacidosis): Status: Acute Assessment and plan: Etiology may be a gastroentertitis as his also developed some GI illness after their anniversary dinner night before his symptoms developed and his CT abdomen/pelvis demonstrated some thickening of his cecum; however Gerard denies any diarrhea w/ his current illness. I will advance his diet and activity this morning and begin basal/bolus insulin therapy as long as his AG remains resolved. Continue iv fluids until certain that he is going to tolerate po intake. check glycohemoglobin A1C Professional time spent interviewing and examining patient, discussion of goals of care with hospital team (care management, nursing and consulting professionals) was 30 minutes. Subjective Subjective Interval history since last seen: 43 yr old male type I diabetic who was admitted last night w/ DKA. See admission H&P ED notes for details. Overnight patient was treated with insulin drip as well as IV fluids his anion gap is resolved as of 4 A.M. at which point his AG was down to 7 and HCO3 25. He remains on insulin drip at 3 units/hr and his glucose as of 8 a.m. is 153. He complains of sore throat from the excess vomiting he had last night but otherwise denies any abdominal pain, nausea, dyspnea or chest pain. He has had no fevers and denies any open sores. His 8 a.m. labs are pending however if his AG remains resolved I plan to switch him to basal/bolus insulin. Exam Narrative Exam Narrative: Middle age white male who is alert and oriented, he is hoarse Lungs: clear Heart: regular but tachycardia (HR 100 to 110 sinus on the monitor) Abdomen: soft, nontender, nondistended, normal bowel sounds Legs/feet: no cyanosis or edema, normal pedal pulses, no ulcers over toes or feet; small scab over left anterior tibia Objective Last Vital Signs Temp 37.0 C 07/25/23 23:30 Pulse 89 07/26/23 03:01 Resp 4 L 07/26/23 03:01 BP 97/60 L 07/26/23 03:01 Pulse Ox 97 07/26/23 03:01 Laboratory Results - last 24 hr 07/25/23 07/25/23 07/25/23 17:15 17:15 17:15 WBC 14.26 H RBC 5.45 Hgb 16.1 Hct 46.7 MCV 86 MCH 29.5 MCHC 34.5 RDW 13.1 Plt Count 235 MPV 10.5 Immature Gran % 0.4 Neutrophils % 90.4 Lymphocytes % 4.3 Monocytes % 4.7 Eosinophils % 0.0 Basophils % 0.2 Nucleated RBC % 0.0 Absolute Neutrophils 12.89 H Absolute Lymphocytes 0.61 L Absolute Monocytes 0.67 Absolute Eosinophils 0.00 Absolute Basophils 0.03 VBG pH 7.39 VBG pCO2 25 L VBG pO2 60 VBG HCO3 15 L VBG Total CO2 13 L VBG O2 Saturation 92 VBG Base Excess -10 L Sodium 133 L Potassium 4.5 Chloride 93 L Carbon Dioxide 15.6 L Anion Gap 24.4 H BUN 19 H Creatinine 1.4 H Est GFR (CKD-EPI 2020) 64.36 Glucose 340 H Calcium 9.3 Magnesium 1.6 L Total Bilirubin 1.4 H AST 23 ALT 37 Alkaline Phosphatase 105 Total Protein 7.8 Albumin 4.3 Lipase Urine Color Urine Clarity Urine pH Ur Specific [place] Urine Protein Urine Ketones Urine Blood Urine Nitrite Urine Bilirubin Urine Urobilinogen Ur Leukocyte Esterase Urine Glucose COVID-19 Source SARS-CoV-2 (PCR) 07/25/23 07/25/23 07/25/23 17:15 17:35 19:30 WBC RBC Hgb Hct MCV MCH MCHC RDW Plt Count MPV Immature Gran % Neutrophils % Lymphocytes % Monocytes % Eosinophils % Basophils % Nucleated RBC % Absolute Neutrophils Absolute Lymphocytes Absolute Monocytes Absolute Eosinophils Absolute Basophils VBG pH VBG pCO2 VBG pO2 VBG HCO3 VBG Total CO2 VBG O2 Saturation VBG Base Excess Sodium 134 L Potassium 4.3 Chloride 98 Carbon Dioxide 17.6 L Anion Gap 18.4 H BUN 18 Creatinine 1.2 Est GFR (CKD-EPI 2020) 77.43 Glucose 250 H Calcium 8.4 L Magnesium Total Bilirubin AST ALT Alkaline Phosphatase Total Protein Albumin Lipase 13 L Urine Color Yellow Urine Clarity Clear Urine pH 5.5 Ur Specific [place] >= 1.030 H Urine Protein Negative Urine Ketones >=160 H Urine Blood Negative Urine Nitrite Negative Urine Bilirubin Negative Urine Urobilinogen 0.2 Ur Leukocyte Esterase Negative Urine Glucose 500 H COVID-19 Source SARS-CoV-2 (PCR) 07/25/23 07/25/23 07/26/23 22:50 23:55 03:58 WBC RBC Hgb Hct MCV MCH MCHC RDW Plt Count MPV Immature Gran % Neutrophils % Lymphocytes % Monocytes % Eosinophils % Basophils % Nucleated RBC % Absolute Neutrophils Absolute Lymphocytes Absolute Monocytes Absolute Eosinophils Absolute Basophils VBG pH VBG pCO2 VBG pO2 VBG HCO3 VBG Total CO2 VBG O2 Saturation VBG Base Excess Sodium 137 137 Potassium 3.9 3.5 Chloride 102 105 Carbon Dioxide 23.1 25.0 Anion Gap 11.9 H 7.0 BUN 17 15 Creatinine 1.2 1.1 Est GFR (CKD-EPI 2020) 77.43 85.95 Glucose 160 H 110 H Calcium 7.3 L 7.5 L Magnesium Total Bilirubin AST ALT Alkaline Phosphatase Total Protein Albumin Lipase Urine Color Urine Clarity Urine pH Ur Specific [place] Urine Protein Urine Ketones Urine Blood Urine Nitrite Urine Bilirubin Urine Urobilinogen Ur Leukocyte Esterase Urine Glucose COVID-19 Source Nasal/Nares SARS-CoV-2 (PCR) Negative PAWSS Have you Been Recently Intoxicated or Drunk Within the Last 30 days?: No Have you Ever Experienced Previous Episodes of Alcohol Withdrawal?: No Have you ever Experienced Withdrawal Seizures?: No Have you ever Experienced Delirium Tremens(DT)s?: No Have you ever undergone Alcohol Rehabilitation Treatment (i.e, inpt ot outpatient treatment programs)?: No Have you ever Experienced Blackouts?: No Have you ever Combined Alcohol with other Downers within the last 90 days?: No Have you ever Combined Alcohol with any other Substance of Abuse during the last 90 days?: No Positive Blood Alcohol level on Presentation? [PCS.BAL]: No Evidence of Increased Autonomic Activity (i.e. HR>120, tremor, sweating, agit ation, nausea)?: No Result: 0 Time Spent with Patient Time Spent with Patient: 25-34 minutes Time was spent: preparing to see the patient(eg.review tests), obtaining and/or reviewing separately otained hiistory, ordering medications,tests, procedures, referring, communicating with other health manager intensive care (discussion w/admitting hospitalist, ICU nurse), indepentently interpreting results, counseling the patient and care coordination
[2023-07-26 08:19] LABS: Anion Gap 10.1 mmol/L (3-11); BUN 15 mg/dL (7-18); CO2 21.9 mmol/L (21.0-32.0); CREATININE 1.1 mg/dL (0.70-1.30); Calcium 7.8 mg/dL (8.5-10.1); Chloride 104 mmol/L (98-107); Estimated GFR 85.95 (mL/min/1.73m2); Glucose 167 mg/dL (74-106); Potassium 3.8 mmol/L (3.5-5.1); Sodium 136 mmol/L (136-145)
[2023-07-26] MEDS: Insulin Aspart 300 UNITS/3 ML PEN SC ×2 (09:34→12:17)
[2023-07-26 12:03] LABS: Anion Gap 9.7 mmol/L (3-11); BUN 14 mg/dL (7-18); CO2 23.3 mmol/L (21.0-32.0); Calcium 8.1 mg/dL (8.5-10.1); Chloride 104 mmol/L (98-107); Estimated GFR 96.37 (mL/min/1.73m2); Glucose 116 mg/dL (74-106); Potassium 3.9 mmol/L (3.5-5.1); Sodium 137 mmol/L (136-145)
[2023-07-26 15:26] LABS: Lab Add On Test DONE
--- NOTE | 2023-07-26 15:34 | DSE_ITS ---
Date of service: 07/26/23 Time of Service: 15:34 DS: Diagnosis Discharge Diagnosis (1) DKA (diabetic ketoacidosis): Status: Resolved Discharge Plan Disposition Patient Disposition: Home Condition: Good Discharge Details Reason For Visit: DKA Admit Date/Time: 07/25/23 22:29 Admit Provider: Marcello Dia Attending Provider: Marcello Dia Primary Care Provider: Darling Albert Hospital Course Hospital Course: 43-year-old male with history of type 1 diabetes mellitus presents emergency department with nausea vomiting and found to be in acute diabetic ketoacidosis blood sugar 340, anion gap 24, bicarb of 15 with pH of 7.39 on VBG. And a white count of 14,000. Urine was positive for ketonuria. Patient had not missed any doses of his insulin but he and his had been out the night before celebrating their anniversary which the patient had a few alcoholic drinks. There may have been a component of gastroenteritis as his also had symptoms of diarrhea. Patient himself denies any diarrhea or abdominal pain. CT showed nonspecific thickening of the cecum suggestive of a colitis. Patient was started on IV fluids but after couple liters of fluids remain hyperglycemic and ketotic was put on insulin drip and admitted to the intensive care unit with serial laboratory monitoring. With further IV fluids and IV insulin his glucose improved remarkably with blood sugars coming down from the 300s down into the 100-150 range. His anion gap resolved the patient was converted to basal bolus insulin with Levemir and NovoLog. He was monitored throughout the day and started on a regular diabetic diet couple more repeat BMPs were monitored to ensure that he remained out of acidosis. At time of discharge his anion gap was normal at 9.7 his Cobaxine level was 23.3. Glucose at lunchtime was 116 although after lunch his glucose did go up to 223 which was then covered with NovoLog. He did receive a dose of his Levemir 20 units in the morning. He should resume his usual dose of 30 units of Levemir at night along with his insulin to carbohydrate ratio of 1:10 as well as a sliding scale. He tolerated diet well with no further nausea or vomiting and was discharged home. Much improved condition with instructions to follow-up both with his primary care provider in the next week as well as with the life skills educator Blanca Barrios. Home Meds and New Rx's Prescriptions: Continued Levemir FlexPen 100 unit/mL (3 mL) insulin pen 30 unit subcut QHS insulin lispro [Humalog KwikPen Insulin] 100 unit/mL Insulin Pen See Rx Instructions .ROUTE .COMPLEX Rx Instructions: inject subcutaneously per sliding scale PRN before meals 25-45 units daily insulin degludec [Tresiba FlexTouch U-100] 100 unit/mL (3 mL) insulin pen 40 unit SUBCUT QAM Patient Comments: Pt states he no longer takes this med (DME) FreeStyle Giancarlo 14 Day Sensor Kit MISCELLANEOUS Patient Comments: USE DIRECTED EVERY 14 DAYS Glucagon Emergency Kit (human) 1 mg Recon Soln 1 mg IM ONCE PRN (Reason: hypoglycemia) Qty: 1 1RF Discharge Instructions Instructions: Diabetic Ketoacidosis (DC) Referrals: Blanca Barrios [WA[employer] OPERATOR] - Darling Albert [Primary Care Provider] - Activity:: Activity as Tolerated Equipment/Supplies:: No Equipment Needed Diet:: Carb Counting Discharge Orders Discharge Orders: Discharge Order (Routine); Ordered 07/26/23 Ordered By: Rommel Hayden DS: Summary Time Spent with Patient providing and/or coordinating discharge services: Less than 30 minutes Specific discharge activities: Interview/exam of patient; review of discharge instructions, completion of prescriptions/discharge instructions; discussion w/ nursing and CM; documentation of hospital visit Status at Discharge Functional status at discharge: independent ambulation Overall status at discharge: patient is back to baseline Mental Status: mental status grossly normal Speech and Movement: speech and movement normal Mood: congruent mood Affect: normal affect Exam Narrative Exam Narrative: Middle age white male who is alert and oriented, he is hoarse Lungs: clear Heart: regular but tachycardia (HR 100 to 110 sinus on the monitor) Abdomen: soft, nontender, nondistended, normal bowel sounds Legs/feet: no cyanosis or edema, normal pedal pulses, no ulcers over toes or feet; small scab over left anterior tibia Psych Mental Status: mental status grossly normal Speech and Movement: speech and movement normal Mood: congruent mood Affect: normal affect DS: Data Vitals/I&O Vitals and I&O: Vital Signs Temperature 37.4 C 07/26/23 07:30 Temperature Source Temporal Artery Scan 07/26/23 07:30 Pulse 99 H 07/26/23 12:25 Pulse 109 H 07/26/23 12:00 Respiratory Rate 23 07/26/23 11:00 Respiratory Effort Normal, Non-Labored 07/26/23 07:30 Respiratory Depth Normal 07/26/23 07:30 Respiratory Pattern Normal 07/26/23 07:30 Blood Pressure 120/73 07/26/23 12:25 Blood Pressure Mean 82 07/26/23 12:25 Blood Pressure Position Supine 07/26/23 07:30 Pulse Oximetry 95 07/26/23 08:01 Oxygen Delivery Method Room Air 07/26/23 07:30 Oxygen Flow Rate 0 07/26/23 07:30 Pain Level 0 07/26/23 07:30 Intake & Output 07/25/23 07/26/23 07/26/23 23:59 11:59 23:59 Intake Total 4102.3 / 4102.3 2055.365 / 2055.365 Output Total 600 / 600 Balance 4102.3 / 4102.3 1455.365 / 1455.365 Weight 77.6 kg Intake: IV 4102.3 / 4102.3 2055.365 / 2055.365 Output: Urine 600 / 600 Other: Urine Color Light María Elena Urine Appearance Clear Urine Odor None Voiding Methods Urinal Data Completed and Pending Labs on day of discharge: Labs from last 24 hours 07/26/23 07/26/23 07/26/23 23:40 19:40 15:40 WBC RBC Hgb Hct MCV MCH MCHC RDW Plt Count MPV Immature Gran % Neutrophils % Lymphocytes % Monocytes % Eosinophils % Basophils % Nucleated RBC % Absolute Neutrophils Absolute Lymphocytes Absolute Monocytes Absolute Eosinophils Absolute Basophils VBG pH VBG pCO2 VBG pO2 VBG HCO3 VBG Total CO2 VBG O2 Saturation VBG Base Excess Sodium Cancelled Cancelled Cancelled Potassium Cancelled Cancelled Cancelled Chloride Cancelled Cancelled Cancelled Carbon Dioxide Cancelled Cancelled Cancelled Anion Gap Cancelled Cancelled Cancelled BUN Cancelled Cancelled Cancelled Creatinine Cancelled Cancelled Cancelled Est GFR (CKD-EPI 2020) Cancelled Cancelled Cancelled Glucose Cancelled Cancelled Cancelled Hemoglobin A1c Calcium Cancelled Cancelled Cancelled Magnesium Total Bilirubin AST ALT Alkaline Phosphatase Total Protein Albumin Lipase Urine Color Urine Clarity Urine pH Ur Specific [place] Urine Protein Urine Ketones Urine Blood Urine Nitrite Urine Bilirubin Urine Urobilinogen Ur Leukocyte Esterase Urine Glucose COVID-19 Source SARS-CoV-2 (PCR) Add-On Test Request 07/26/23 07/26/23 07/26/23 11:43 11:43 11:43 WBC RBC Hgb Hct MCV MCH MCHC RDW Plt Count MPV Immature Gran % Neutrophils % Lymphocytes % Monocytes % Eosinophils % Basophils % Nucleated RBC % Absolute Neutrophils Absolute Lymphocytes Absolute Monocytes Absolute Eosinophils Absolute Basophils VBG pH VBG pCO2 VBG pO2 VBG HCO3 VBG Total CO2 VBG O2 Saturation VBG Base Excess Sodium 137 Potassium 3.9 Chloride 104 Carbon Dioxide 23.3 Anion Gap 9.7 BUN 14 Creatinine 1.0 Est GFR (CKD-EPI 2020) 96.37 Glucose 116 H Hemoglobin A1c 8.0 H Calcium 8.1 L Magnesium Total Bilirubin AST ALT Alkaline Phosphatase Total Protein Albumin Lipase Urine Color Urine Clarity Urine pH Ur Specific [place] Urine Protein Urine Ketones Urine Blood Urine Nitrite Urine Bilirubin Urine Urobilinogen Ur Leukocyte Esterase Urine Glucose COVID-19 Source SARS-CoV-2 (PCR) Add-On Test Request DONE 07/26/23 07/26/23 07/25/23 08:00 03:58 23:55 WBC RBC Hgb Hct MCV MCH MCHC RDW Plt Count MPV Immature Gran % Neutrophils % Lymphocytes % Monocytes % Eosinophils % Basophils % Nucleated RBC % Absolute Neutrophils Absolute Lymphocytes Absolute Monocytes Absolute Eosinophils Absolute Basophils VBG pH VBG pCO2 VBG pO2 VBG HCO3 VBG Total CO2 VBG O2 Saturation VBG Base Excess Sodium 136 137 137 Potassium 3.8 3.5 3.9 Chloride 104 105 102 Carbon Dioxide 21.9 25.0 23.1 Anion Gap 10.1 7.0 11.9 H BUN 15 15 17 Creatinine 1.1 1.1 1.2 Est GFR (CKD-EPI 2020) 85.95 85.95 77.43 Glucose 167 H 110 H 160 H Hemoglobin A1c Calcium 7.8 L 7.5 L 7.3 L Magnesium Total Bilirubin AST ALT Alkaline Phosphatase Total Protein Albumin Lipase Urine Color Urine Clarity Urine pH Ur Specific [place] Urine Protein Urine Ketones Urine Blood Urine Nitrite Urine Bilirubin Urine Urobilinogen Ur Leukocyte Esterase Urine Glucose COVID-19 Source SARS-CoV-2 (PCR) Add-On Test Request 07/25/23 07/25/23 07/25/23 22:50 19:30 17:35 WBC RBC Hgb Hct MCV MCH MCHC RDW Plt Count MPV Immature Gran % Neutrophils % Lymphocytes % Monocytes % Eosinophils % Basophils % Nucleated RBC % Absolute Neutrophils Absolute Lymphocytes Absolute Monocytes Absolute Eosinophils Absolute Basophils VBG pH VBG pCO2 VBG pO2 VBG HCO3 VBG Total CO2 VBG O2 Saturation VBG Base Excess Sodium 134 L Potassium 4.3 Chloride 98 Carbon Dioxide 17.6 L Anion Gap 18.4 H BUN 18 Creatinine 1.2 Est GFR (CKD-EPI 2020) 77.43 Glucose 250 H Hemoglobin A1c Calcium 8.4 L Magnesium Total Bilirubin AST ALT Alkaline Phosphatase Total Protein Albumin Lipase Urine Color Yellow Urine Clarity Clear Urine pH 5.5 Ur Specific [place] >= 1.030 H Urine Protein Negative Urine Ketones >=160 H Urine Blood Negative Urine Nitrite Negative Urine Bilirubin Negative Urine Urobilinogen 0.2 Ur Leukocyte Esterase Negative Urine Glucose 500 H COVID-19 Source Nasal/Nares SARS-CoV-2 (PCR) Negative Add-On Test Request 07/25/23 07/25/23 07/25/23 17:15 17:15 17:15 WBC 14.26 H RBC 5.45 Hgb 16.1 Hct 46.7 MCV 86 MCH 29.5 MCHC 34.5 RDW 13.1 Plt Count 235 MPV 10.5 Immature Gran % 0.4 Neutrophils % 90.4 Lymphocytes % 4.3 Monocytes % 4.7 Eosinophils % 0.0 Basophils % 0.2 Nucleated RBC % 0.0 Absolute Neutrophils 12.89 H Absolute Lymphocytes 0.61 L Absolute Monocytes 0.67 Absolute Eosinophils 0.00 Absolute Basophils 0.03 VBG pH 7.39 VBG pCO2 25 L VBG pO2 60 VBG HCO3 15 L VBG Total CO2 13 L VBG O2 Saturation 92 VBG Base Excess -10 L Sodium Potassium Chloride Carbon Dioxide Anion Gap BUN Creatinine Est GFR (CKD-EPI 2020) Glucose Hemoglobin A1c Calcium Magnesium Total Bilirubin AST ALT Alkaline Phosphatase Total Protein Albumin Lipase 13 L Urine Color Urine Clarity Urine pH Ur Specific [place] Urine Protein Urine Ketones Urine Blood Urine Nitrite Urine Bilirubin Urine Urobilinogen Ur Leukocyte Esterase Urine Glucose COVID-19 Source SARS-CoV-2 (PCR) Add-On Test Request 07/25/23 17:15 WBC RBC Hgb Hct MCV MCH MCHC RDW Plt Count MPV Immature Gran % Neutrophils % Lymphocytes % Monocytes % Eosinophils % Basophils % Nucleated RBC % Absolute Neutrophils Absolute Lymphocytes Absolute Monocytes Absolute Eosinophils Absolute Basophils VBG pH VBG pCO2 VBG pO2 VBG HCO3 VBG Total CO2 VBG O2 Saturation VBG Base Excess Sodium 133 L Potassium 4.5 Chloride 93 L Carbon Dioxide 15.6 L Anion Gap 24.4 H BUN 19 H Creatinine 1.4 H Est GFR (CKD-EPI 2020) 64.36 Glucose 340 H Hemoglobin A1c Calcium 9.3 Magnesium 1.6 L Total Bilirubin 1.4 H AST 23 ALT 37 Alkaline Phosphatase 105 Total Protein 7.8 Albumin 4.3 Lipase Urine Color Urine Clarity Urine pH Ur Specific [place] Urine Protein Urine Ketones Urine Blood Urine Nitrite Urine Bilirubin Urine Urobilinogen Ur Leukocyte Esterase Urine Glucose COVID-19 Source SARS-CoV-2 (PCR) Add-On Test Request PFSH All Active Problems (Updated 07/26/23 @ 15:41 by Rommel Hayden MD) Vomiting (Acute) Acute dehydration (Acute) Adhesive capsulitis of both shoulders (Acute) Fracture of fifth metatarsal bone of right foot (Acute) Hypoglycemia (Acute) Right calcaneal fracture malunion (Acute) Arthritis of right subtalar joint (Acute) Type I diabetes mellitus (Chronic) Social History Smoking/Tobacco Use Status: Former Tobacco Use Quit Date: 11/22/17 Smoking risk assessment performed?: Yes Alcohol Intake: current Alcohol Intake frequency: holidays/special occasions only Drug use: Daily Substance use type: marijuana Housing: house Current gender identity: male Do you feel safe at home: Yes Do you feel safe in your relationship?: Yes Time Spent with Patient Time Spent with Patient: <45 minutes Time was spent: preparing to see the patient(eg.review tests), indepentently interpreting results, counseling the patient and care coordination
== END 2023-07-26 15:45 | disposition home or self-care (01) | DRG 638 ==
LOC: ER 23:36 → ICU 23:42
PROVIDERS: Internal Medicine; Admitting Provider General Practice; Emergency Provider Nurse Practitioner Family; PCP Family Medicine; Visit Provider General Practice
DX: E10.10 Type 1 diabetes mellitus with ketoacidosis without coma (principal); E87.3 Alkalosis; E86.0 Dehydration; R11.2 Nausea with vomiting, unspecified; D72.829 Elevated white blood cell count, unspecified; R00.0 Tachycardia, unspecified; K52.9 Noninfective gastroenteritis and colitis, unspecified; Z87.891 Personal history of nicotine dependence; M75.02 Adhesive capsulitis of left shoulder; M75.01 Adhesive capsulitis of right shoulder; M19.071 Primary osteoarthritis, right ankle and foot
CPT/HCPCS: 36415; 36416; 74177; 80048; 80053; 82805; 82962; 83690; 87635; 96361; 96365; 96372; 96375; 99291; 71260; 81003; 83036; 83735; 85025; 99223; 99232; 99238; J0131; J0780; J2060; J2405; J3490

== ENCOUNTER 2023-09-02 16:54 | Emergency (ER) | payer SELFPAY ==
[2023-09-02 17:02] VITALS: BP 139/60; PULSE 91; RESP 18; TEMP 36.8; O2SAT 98
--- NOTE | 2023-09-02 19:09 | ED.GENADUL_ITS ---
Discharge Plan Disposition Patient Disposition: Home Condition: Improving Discharge Details Clinical Impression: Corneal abrasion Primary Care Provider: Darling Albert ED Provider: Jasmeet Bolanos Home Meds and New Rx's Prescriptions: New ofloxacin [Ocuflox] 0.3 % drops See Rx Instructions .ROUTE .COMPLEX Qty: 5 0RF Rx Instructions: put 1-2 drps into affected eye(s) every 2-4 h x 2 days, then 1-2 drps 4 times/day days 3-7 No Action Levemir FlexPen 100 unit/mL (3 mL) insulin pen 30 unit subcut QHS insulin lispro [Humalog KwikPen Insulin] 100 unit/mL Insulin Pen See Rx Instructions .ROUTE .COMPLEX Rx Instructions: inject subcutaneously per sliding scale PRN before meals 25-45 units daily insulin degludec [Tresiba FlexTouch U-100] 100 unit/mL (3 mL) insulin pen 40 unit SUBCUT QAM Patient Comments: Pt states he no longer takes this med (DME) FreeStyle Giancarlo 14 Day Sensor Kit MISCELLANEOUS Patient Comments: USE DIRECTED EVERY 14 DAYS Glucagon Emergency Kit (human) 1 mg Recon Soln 1 mg IM ONCE PRN (Reason: hypoglycemia) Qty: 1 1RF Discharge Instructions Instructions: Corneal Abrasion (ED) Medical Decision Making 43-year-old male presents with right eye irritation after operating a chainsaw, believes some sawdust may have kicked up into his eye. Patient has 20/20 vision bilaterally and 20/20 vision specifically in his right eye, mildly injected conjunctiva, no discharge, superior corneal abrasion negative Ana Cristina sign negative foreign body, lids irrigated extensively, patient feeling much better. Will be started on ofloxacin, home care instructions return precautions given HPI General Date/Time Provider Initiated Documentation: 09/02/23 18:05 . HPI Narrative: 43-year-old male presents after stating irritation to right eye while using a chainsaw, believes to be some sawdust might of kicked up into his eye. Related Data Home Medications Medication Instructions Recorded Confirmed flash glucose sensor (FreeStyle 04/22/21 02/23/23 Giancarlo 14 Day Sensor kit) glucagon (human recombinant) 1 mg 1 mg IM ONCE PRN hypoglycemia #1 ea 04/22/21 07/25/23 solution for injection (Glucagon Emergency Kit) insulin degludec 100 unit/mL (3 40 unit subcut QAM 04/22/21 02/23/23 mL) subcutaneous pen (Tresiba FlexTouch U-100 insulin) insulin lispro 100 unit/mL See Rx Instructions .Route .COMPLEX 04/22/21 07/25/23 subcutaneous pen (Humalog KwikPen (U-100) Insulin) insulin detemir U-100 100 unit/mL 30 unit subcut QHS 01/29/23 07/25/23 (3 mL) subcutaneous pen (Levemir FlexPen) ofloxacin 0.3 % eye drops (Ocuflox) See Rx Instructions ophthalmic 09/02/23 (eye) .COMPLEX #5 mL Previous Rx's Medication Instructions Recorded glucagon (human recombinant) 1 mg 1 mg IM ONCE PRN hypoglycemia #1 ea 04/22/21 solution for injection (Glucagon Emergency Kit) ofloxacin 0.3 % eye drops (Ocuflox) See Rx Instructions ophthalmic 09/02/23 (eye) .COMPLEX #5 mL Allergies Allergy/AdvReac Type Severity Reaction Status Date / Time doxycycline AdvReac severe Unverified 02/23/23 11:15 vomiting/diarrhea General Stated Complaint: EyeProblem MICHAEL: 3 Review of Systems Narrative: Review of Systems Constitutional: negative Eyes: Eye irritation ENT: negative Cardiovascular: negative Respiratory: negative Gastrointestinal: negative : negative Musculoskeletal: negative Skin: negative Neurologic: negative Psych: negative PFSH All Active Problems (Updated 09/02/23 @ 19:14 by Jasmeet Bolanos MD) Corneal abrasion (Acute) Adhesive capsulitis of both shoulders (Acute) Fracture of fifth metatarsal bone of right foot (Acute) Hypoglycemia (Acute) Right calcaneal fracture malunion (Acute) Arthritis of right subtalar joint (Acute) Type I diabetes mellitus (Chronic) Social History Smoking/Tobacco Use Status: Former Tobacco Use Quit Date: 11/22/17 Smoking risk assessment performed?: Yes Alcohol Intake: current Alcohol Intake frequency: holidays/special occasions only Drug use: Daily Substance use type: marijuana Housing: house Current gender identity: male Do you feel safe at home: Yes Do you feel safe in your relationship?: Yes Exam Narrative Exam Narrative: Physical Examination General: alert, awake, cooperative, resting comfortably, no acute distress HEENT: normocephalic, atraumatic; PERRL, EOM intact, mildly injected right conjunctiva OD 20/20 vision, superficial corneal abrasion superior aspect of sclera without evidence of foreign body, negative Ana Cristina sign, 20/20 vision bilaterally Neck: supple, trachea midline; full ROM Course Vital Signs Vital signs: Vital Signs Temperature 36.8 C 09/02/23 17:02 Pulse 91 H 09/02/23 17:02 Respiratory Rate 18 09/02/23 17:02 Blood Pressure 139/60 09/02/23 17:02 Pulse Oximetry 98 09/02/23 17:02 Temperature 36.8 C 09/02/23 17:02 Temperature Source Skin 09/02/23 17:02 Pulse 91 H 09/02/23 17:02 Respiratory Rate 18 09/02/23 17:02 Respiratory Effort Normal 09/02/23 17:05 Blood Pressure 139/60 09/02/23 17:02 Blood Pressure Position Sitting 09/02/23 17:02 Pulse Oximetry 98 09/02/23 17:02 Oxygen Delivery Method Room Air 09/02/23 17:02 Oxygen Flow Rate 0 09/02/23 17:02
== END 2023-09-02 19:26 | disposition home or self-care (01) ==
PROVIDERS: Emergency Provider Emergency Medicine; PCP Family Medicine
DX: H57.11 Ocular pain, right eye (principal); S05.01XA Injury of conjunctiva and corneal abrasion without foreign body, right eye, initial encounter; Z57.2 Occupational exposure to dust
CPT/HCPCS: 99283; 99284